=== PATIENT | female | born 1985 | race American Indian/Alaskan Native ===

== ENCOUNTER 2017-05-09 14:37 | Emergency (ER) | payer SELFPAY ==
[2017-05-09 16:51] LABS: Urine Drugs of Abuse Note Disclamer
[2017-05-09 17:10] LABS: Bacteria,Urine 1+ /HPF (Negative); Bilirubin,Urine NEG (Negative); Blood,Urine NEG (Negative); Ketones,Urine 80 mg/dL (Negative); Leukocyte Esterase,Urine NEG (Negative); Mucus,Urine 1+ /HPF; Nitrite,Urine NEG (Negative)
[2017-05-09 17:16] LABS: Basophils % (Auto) 0.9 % (0.0-1.8); Eosinophils % (Auto) 1.7 % (0.0-4.3); Hematocrit 32.1 % (30.3-42.9); Hemoglobin 10.5 gm/dl (10.1-14.3); Mean Corpuscular HGB Conc 33 % (30-34); Mean Corpuscular Hemoglobin 27 pg (28-32); Mean Corpuscular Volume 81 fl (79-97); Platelet Count 245 K/mm3 (140-440); Red Blood Count 3.96 M/mm3 (3.65-5.03); White Blood Count 5.9 K/mm3 (4.5-11.0)
[2017-05-09 17:26] LABS: Red Cell Distribution Width 21.3 % (13.2-15.2)
[2017-05-09 17:27] LABS: Anion Gap 16 mmol/L; Blood Urea Nitrogen 10 mg/dL (7-17); Calcium 9.2 mg/dL (8.4-10.2); Carbon Dioxide 24 mmol/L (22-30); Chloride 99.9 mmol/L (98-107); Glucose 81 mg/dL (65-100); Potassium 3.3 mmol/L (3.6-5.0); Sodium 137 mmol/L (137-145)
[2017-05-09 17:29] LABS: Albumin 4.1 g/dL (3.9-5); Albumin/Globulin Ratio 1.2 %; Bilirubin,Direct 0.2 mg/dL (0-0.2); Bilirubin,Indirect 0.4 mg/dL; Bilirubin,Total 0.6 mg/dL (0.1-1.2); Total Protein 7.6 g/dL (6.3-8.2)
[2017-05-09] MEDS ORDERED: NACL 0.9% 1000 ML 1,000 ML IV ONE ×2 (17:37→17:41)
--- NOTE | 2017-05-09 17:37 | Emergency Department Report ---
ED Altered Mental Status HPI - General Chief Complaint: Psych Stated Complaint: AMS Time Seen by Provider: 05/09/17 16:42 Source: police, EMS Mode of arrival: Stretcher Limitations: Altered Mental Status - History of Present Illness MD Complaint: altered mental status, other (pt responding on exam to light tactile stimulation. she moans and moves head. abc intact. will not follow command. no trauma. was seen at [facility] by pd. ) -: unknown Context: alcohol abuse, drug abuse, other (no previous admit to [facility]) - Related Data Home Medications Medication Instructions Recorded Confirmed Last Taken No Known Home Medications [No 05/09/17 05/09/17 Unknown Reported Home Medications] Allergies Allergy/AdvReac Type Severity Reaction Status Date / Time No Known Allergies Allergy Verified 05/09/17 16:34 ED Review of Systems ROS: Stated complaint: AMS Other details as noted in HPI Comment: Unobtainable due to pts medical conditions Constitutional: no symptoms reported Eyes: as per HPI ENT: as per HPI Respiratory: no symptoms reported Cardiovascular: as per HPI Endocrine: no symptoms reported Gastrointestinal: as per HPI Genitourinary: as per HPI Musculoskeletal: as per HPI Skin: as per HPI Neurological: as per HPI Psychiatric: as per HPI, depression (reoports being on zoloft). denies: anxiety Hematological/Lymphatic: as per HPI ED Past Medical Hx - Past Medical History Previous Medical History?: No - Surgical History Past Surgical History?: No - Family History Family history: other (denies) - Social History Smoking Status: Unknown if ever smoked Substance Use Type: Cocaine, Marijuana, Other Other Social History: unknown - Medications Home Medications: Home Medications Medication Instructions Recorded Confirmed Last Taken Type No Known Home Medications [No 05/09/17 05/09/17 Unknown History Reported Home Medications] ED Physical Exam - General Limitations: Altered Mental Status General appearance: in no apparent distress, appears intoxicated - Head Head exam: Present: atraumatic - Eye Eye exam: Present: PERRL, other (2r b) - ENT ENT exam: Present: normal exam, normal orophraynx - Neck Neck exam: Present: normal inspection - Respiratory Respiratory exam: Present: normal lung sounds bilaterally - Cardiovascular Cardiovascular Exam: Present: regular rate - GI/Abdominal GI/Abdominal exam: Present: soft - Rectal Rectal exam: Present: deferred - Extremities Exam Extremities exam: Present: normal inspection - Back Exam Back exam: Present: normal inspection - Expanded Neurological Exam Expanded Patient oriented to: Present: person, place Speech: Present: fluid speech. Absent: receptive aphasia, expressive aphasia Cranial nerves: EOM's Intact: Normal, Gag Reflex: Normal, Tongue Deviation: Normal, Nystagmus: Normal, Facial Sensation: Normal Motor strength exam: RUE: 5, LUE: 5, RLE: 5, LLE: 5 Best Eye Response (Heidi): (4) open spontaneously (1224) Best Motor Response ([place]): (6) obeys commands Best Verbal Response (Heidi): (5) oriented (constricted) Heidi Total: 15 - Psychiatric Psychiatric exam: Present: agitated (when pressed for information becomes agiated. ). Absent: normal affect, normal mood, depressed - Skin Skin exam: Present: warm, dry, intact, normal color ED Course Vital Signs 05/09/17 05/09/17 05/09/17 16:34 17:26 21:43 Temperature 97.7 F Pulse Rate 74 97 H Respiratory 16 16 Rate Blood Pressure 125/72 101/64 108/56 [Left] O2 Sat by Pulse 96 97 Oximetry - Reevaluation(s) Reevaluation #1: 05/09/17 abc intact vss pd saw pt at gas station to er no trauma or indication of trauma polysub noted no hx available 1013 for psych consult replace k fluids recheck k check mg allow to wake up- ongoing monitoring and med clearance Reevaluation #2: 05/09/17 18:25 was asking for food when labs drawn vss abc intact arouses to tactile stimuli and tells me her name vilma moving in the stretcher from side to side at this time. 05/09/17 18:26 plan allow to sober replace k psych consult reassess as she awakens- notify nok Reevaluation #3: 05/09/17 19:10 responding to light stimulation taking po juice wo difficulty ck noted ivf infusion repeat labs in am for med clearance. Reevaluation #4: 05/09/17 20:44 vss nad abc intact answering basic questions not forthcoming of where she lives or w who taking po juice ivf infusing. Reevaluation #5: 05/09/17 23:45 alert and oriented to ER and who she is states lives on streets zoloft daily per pt denies snorting or injecting meds states she does not know what she took x xanax plan monitor labs checked in am p mental health eval - Lab Data Result diagrams: 05/09/17 16:49 05/09/17 16:49 Lab Results 05/09/17 05/09/17 05/09/17 Range/Units 16:32 16:32 16:49 WBC (4.5-11.0) K/mm3 RBC (3.65-5.03) M/mm3 Hgb (10.1-14.3) gm/dl Hct (30.3-42.9) % MCV (79-97) fl MCH (28-32) pg MCHC (30-34) % RDW (13.2-15.2) % Plt Count (140-440) K/mm3 Lymph % (Auto) (13.4-35.0) % [place] % (Auto) (0.0-7.3) % Eos % (Auto) (0.0-4.3) % Baso % (Auto) (0.0-1.8) % Lymph # (1.2-5.4) K/mm3 [place] # (0.0-0.8) K/mm3 Eos # (0.0-0.4) K/mm3 Baso # (0.0-0.1) K/mm3 Seg Neutrophils % (40.0-70.0) % Seg Neutrophils # (1.8-7.7) K/mm3 Sodium 137 (137-145) mmol/L Potassium 3.3 L (3.6-5.0) mmol/L Chloride 99.9 (98-107) mmol/L Carbon Dioxide 24 (22-30) mmol/L Anion Gap 16 mmol/L BUN 10 (7-17) mg/dL Creatinine 0.8 (0.7-1.2) mg/dL Estimated GFR > 60 ml/min BUN/Creatinine Ratio 12.50 % Glucose 81 (65-100) mg/dL POC Glucose (70-105) Calcium 9.2 (8.4-10.2) mg/dL Magnesium (1.7-2.3) mg/dL Total Bilirubin (0.1-1.2) mg/dL Direct Bilirubin (0-0.2) mg/dL Indirect Bilirubin mg/dL AST (5-40) units/L ALT (7-56) units/L Alkaline Phosphatase (35-129) units/L Total Creatine Kinase (30-135) units/L Total Protein (6.3-8.2) g/dL Albumin (3.9-5) g/dL Albumin/Globulin Ratio % Urine Color Yellow (Yellow) Urine Turbidity Clear (Clear) Urine pH 5.0 (5.0-7.0) Ur Specific Holcomb 1.030 (1.003-1.030) Urine Protein 30 mg/dl (Negative) mg/dL Urine Glucose (UA) Neg (Negative) mg/dL Urine Ketones 80 (Negative) mg/dL Urine Blood Neg (Negative) Urine Nitrite Neg (Negative) Urine Bilirubin Neg (Negative) Urine Urobilinogen 4.0 (<2.0) mg/dL Ur Leukocyte Esterase Neg (Negative) Urine WBC (Auto) 2.0 (0.0-6.0) /HPF Urine RBC (Auto) 6.0 (0.0-6.0) /HPF U Epithel Cells (Auto) 3.0 (0-13.0) /HPF Urine Bacteria (Auto) 1+ (Negative) /HPF Urine Mucus 1+ /HPF Urine HCG, Qual Negative (Negative) Urine Opiates Screen Presumptive negative Urine Methadone Screen Presumptive negative Ur Barbiturates Screen Presumptive positive Ur Phencyclidine Scrn Presumptive negative Ur Amphetamines Screen Presumptive negative U Benzodiazepines Scrn Presumptive positive Urine Cocaine Screen Presumptive positive U Marijuana (THC) Screen Presumptive positive Drugs of Abuse Note Disclamer Plasma/Serum Alcohol (0-0.07) gm% 05/09/17 05/09/17 05/09/17 Range/Units 16:49 16:49 16:49 WBC 5.9 (4.5-11.0) K/mm3 RBC 3.96 (3.65-5.03) M/mm3 Hgb 10.5 (10.1-14.3) gm/dl Hct 32.1 (30.3-42.9) % MCV 81 (79-97) fl MCH 27 L (28-32) pg MCHC 33 (30-34) % RDW 21.3 H (13.2-15.2) % Plt Count 245 (140-440) K/mm3 Lymph % (Auto) 24.7 (13.4-35.0) % [place] % (Auto) 12.5 H (0.0-7.3) % Eos % (Auto) 1.7 (0.0-4.3) % Baso % (Auto) 0.9 (0.0-1.8) % Lymph # 1.4 (1.2-5.4) K/mm3 [place] # 0.7 (0.0-0.8) K/mm3 Eos # 0.1 (0.0-0.4) K/mm3 Baso # 0.1 (0.0-0.1) K/mm3 Seg Neutrophils % 60.2 (40.0-70.0) % Seg Neutrophils # 3.5 (1.8-7.7) K/mm3 Sodium (137-145) mmol/L Potassium (3.6-5.0) mmol/L Chloride (98-107) mmol/L Carbon Dioxide (22-30) mmol/L Anion Gap mmol/L BUN (7-17) mg/dL Creatinine (0.7-1.2) mg/dL Estimated GFR ml/min BUN/Creatinine Ratio % Glucose (65-100) mg/dL POC Glucose (70-105) Calcium (8.4-10.2) mg/dL Magnesium (1.7-2.3) mg/dL Total Bilirubin 0.60 (0.1-1.2) mg/dL Direct Bilirubin 0.2 (0-0.2) mg/dL Indirect Bilirubin 0.4 mg/dL AST 47 H (5-40) units/L ALT 40 (7-56) units/L Alkaline Phosphatase 72 (35-129) units/L Total Creatine Kinase (30-135) units/L Total Protein 7.6 (6.3-8.2) g/dL Albumin 4.1 (3.9-5) g/dL Albumin/Globulin Ratio 1.2 % Urine Color (Yellow) Urine Turbidity (Clear) Urine pH (5.0-7.0) Ur Specific Holcomb (1.003-1.030) Urine Protein (Negative) mg/dL Urine Glucose (UA) (Negative) mg/dL Urine Ketones (Negative) mg/dL Urine Blood (Negative) Urine Nitrite (Negative) Urine Bilirubin (Negative) Urine Urobilinogen (<2.0) mg/dL Ur Leukocyte Esterase (Negative) Urine WBC (Auto) (0.0-6.0) /HPF Urine RBC (Auto) (0.0-6.0) /HPF U Epithel Cells (Auto) (0-13.0) /HPF Urine Bacteria (Auto) (Negative) /HPF Urine Mucus /HPF Urine HCG, Qual (Negative) Urine Opiates Screen Urine Methadone Screen Ur Barbiturates Screen Ur Phencyclidine Scrn Ur Amphetamines Screen U Benzodiazepines Scrn Urine Cocaine Screen U Marijuana (THC) Screen Drugs of Abuse Note Plasma/Serum Alcohol < 0.01 (0-0.07) gm% 05/09/17 05/09/17 05/09/17 Range/Units 17:23 17:39 17:53 WBC (4.5-11.0) K/mm3 RBC (3.65-5.03) M/mm3 Hgb (10.1-14.3) gm/dl Hct (30.3-42.9) % MCV (79-97) fl MCH (28-32) pg MCHC (30-34) % RDW (13.2-15.2) % Plt Count (140-440) K/mm3 Lymph % (Auto) (13.4-35.0) % [place] % (Auto) (0.0-7.3) % Eos % (Auto) (0.0-4.3) % Baso % (Auto) (0.0-1.8) % Lymph # (1.2-5.4) K/mm3 [place] # (0.0-0.8) K/mm3 Eos # (0.0-0.4) K/mm3 Baso # (0.0-0.1) K/mm3 Seg Neutrophils % (40.0-70.0) % Seg Neutrophils # (1.8-7.7) K/mm3 Sodium (137-145) mmol/L Potassium (3.6-5.0) mmol/L Chloride (98-107) mmol/L Carbon Dioxide (22-30) mmol/L Anion Gap mmol/L BUN (7-17) mg/dL Creatinine (0.7-1.2) mg/dL Estimated GFR ml/min BUN/Creatinine Ratio % Glucose (65-100) mg/dL POC Glucose 105 (70-105) Calcium (8.4-10.2) mg/dL Magnesium 2.10 (1.7-2.3) mg/dL Total Bilirubin (0.1-1.2) mg/dL Direct Bilirubin (0-0.2) mg/dL Indirect Bilirubin mg/dL AST (5-40) units/L ALT (7-56) units/L Alkaline Phosphatase (35-129) units/L Total Creatine Kinase 159 H (30-135) units/L Total Protein (6.3-8.2) g/dL Albumin (3.9-5) g/dL Albumin/Globulin Ratio % Urine Color (Yellow) Urine Turbidity (Clear) Urine pH (5.0-7.0) Ur Specific [place] (1.003-1.030) Urine Protein (Negative) mg/dL Urine Glucose (UA) (Negative) mg/dL Urine Ketones (Negative) mg/dL Urine Blood (Negative) Urine Nitrite (Negative) Urine Bilirubin (Negative) Urine Urobilinogen (<2.0) mg/dL Ur Leukocyte Esterase (Negative) Urine WBC (Auto) (0.0-6.0) /HPF Urine RBC (Auto) (0.0-6.0) /HPF U Epithel Cells (Auto) (0-13.0) /HPF Urine Bacteria (Auto) (Negative) /HPF Urine Mucus /HPF Urine HCG, Qual (Negative) Urine Opiates Screen Urine Methadone Screen Ur Barbiturates Screen Ur Phencyclidine Scrn Ur Amphetamines Screen U Benzodiazepines Scrn Urine Cocaine Screen U Marijuana (THC) Screen Drugs of Abuse Note Plasma/Serum Alcohol (0-0.07) gm% - EKG Data -: EKG Interpreted by Me EKG shows normal: sinus rhythm Rate: normal Interpretation: no acute changes - Medical Decision Making polysub abuse Critical care attestation.: If time is entered above; I have spent that time in minutes in the direct care of this critically ill patient, excluding procedure time. ED Disposition Clinical Impression: Polysubstance abuse, Altered mental state, Hypokalemia, Depression Disposition: DC/TX-65 PSY HOSP/PSY UNIT Is pt being admited?: No Does the pt Need Aspirin: No Condition: Stable
[2017-05-09] MEDS ORDERED: KCL 10MEQ/100ML 10 MEQ/100 ML BAG IV ONE (17:39)
--- NOTE | 2017-05-10 11:41 | Consultation ---
History of Present Illness - Reason for Consult Consult date: 05/10/17 Reason for consult: AMS and polysubstance abuse Medications and Allergies Allergies Allergy/AdvReac Type Severity Reaction Status Date / Time No Known Allergies Allergy Verified 05/09/17 16:34 Home Medications Medication Instructions Recorded Confirmed Last Taken Type No Known Home Medications [No 05/09/17 05/09/17 Unknown History Reported Home Medications] Mental Status Exam - Vital signs Last Vital Signs Temp 98.7 F 05/10/17 08:42 Pulse 94 H 05/10/17 08:42 Resp 16 05/10/17 08:43 BP 126/80 05/10/17 08:42 Pulse Ox 99 05/10/17 08:43 Results Result Diagrams: 05/09/17 16:49 05/09/17 16:49 Abnormal lab results 05/09/17 05/09/17 05/09/17 Range/Units 16:49 16:49 16:49 MCH 27 L (28-32) pg RDW 21.3 H (13.2-15.2) % [place] % (Auto) 12.5 H (0.0-7.3) % Potassium 3.3 L (3.6-5.0) mmol/L AST 47 H (5-40) units/L Total Creatine Kinase (30-135) units/L Salicylates (2.8-20.0) mg/dL 05/09/17 05/10/17 Range/Units 17:53 02:20 MCH (28-32) pg RDW (13.2-15.2) % [place] % (Auto) (0.0-7.3) % Potassium (3.6-5.0) mmol/L AST (5-40) units/L Total Creatine Kinase 159 H (30-135) units/L Salicylates < 0.3 L (2.8-20.0) mg/dL All other labs normal. Assessment and Plan Assessment and plan: CHIEF COMPLAINT IN PATIENTS WORDS: HISTORY OF PRESENT ILLNESS REQUIRING ADMISSION TO INPATIENT LEVEL OF CARE: (Describe the onset of Illness, Intensity of Symptoms, and Circumstances Leading to Admission) This is a 32 year-old undomiciled female who presents to the ED after being found sleeping on the ground for several days [place] a [place] station. Per review of medical records, patient has been abusing several substances including cocaine, marijuana and benzodiazepines. It is unclear if the patient had overdosed on any of these substances and consequently found herself unresponsive. Over the past 24 hours clinical examination suggests the patient has been mostly nonresponsive. She's had some IV hydration in the ER. On my clinical examination today, patient remains asleep and minimally responsive. I was unable to obtain further clinical information due to her not being responsive. PSYCHIATRIC REVIEW OF SYSTEMS: Substance: Appears to be abusing cocaine, THC and benzodiazepines frequency and use unknown Depression: Unable to obtain Sam[place]: Unable to obtain Psychosis: Unable to obtain Anxiety/ OCD/ PTSD: Unable to obtain Suicidality: Unable to obtain Other Self-Injurious Behavior: Unable to obtain Violent/ Aggressive Behavior: Unable to obtain CURRENT MEDICATIONS: ( Psychiatric and Non-psychiatric ) None ALLERGIES: NKDA PAST PSYCHIATRIC HISTORY: ( Prior Treatment, Precipitating Factors, Diagnosis, and Course of Treatment ) Unable to obtain PAST PSYCHIATRIC MEDICATION TRIALS: Unable to obtain MEDICAL HISTORY: (Chronic and Acute Illnesses, Current Medical Treatment, Recent Hospitalizations) Unable to obtain HISTORY OF TRAUMA/ABUSE: Unable to obtain DRUG / ALCOHOL ABUSE HISTORY: as above Detoxification / Withdrawal: sedated, vitals stable SOCIAL HISTORY: (Educational Level, Employment, Support System, Interpersonal Relationships) homeless FAMILY HISTORY: Psychiatric/Substance Abuse MENTAL STATUS EXAM: General Appearance: Sedated and in hospital gown Sensorium/Consciousness: Arousable to noxious stimuli Eye Contact: Asleep Attitude / Behavior: Asleep, uncooperative Psychomotor & Musculoskeletal Activity: Asleep Mood: Unable to obtain Affect: Unable to obtain Speech / Language: Unable to obtain Thought Processes: Unable to obtain Thought Content: Unable to obtain Perception: Unable to obtain Orientation: Unable to obtain Judgment What would you do if you smelled smoke in a crowded movie theater?: poor/impulsive Insight: poor Intelligence Vocabulary, general fund of knowledge, educational level :Unable to obtain Capacity of ADLs: Unable to assess STRENGTHS: PSYCHOSOCIAL AND ENVIRONMENTAL STRESSORS: Chronic substance abuse and homelessness ADMITTING DIAGNOSES Psychiatric Acute intoxication with cocaine, THC and benzodiazepines Evidence for the following: Rule out cocaine abuse, cannabis abuse, benzodiazepine abuse Rule out major depression Rule out bipolar disorder Medical: n/a INITIAL PLAN OF CARE AND TREATMENT GOALS: Supportive care Continue to monitor for signs and symptoms of withdrawal, place on CIWA Reassess once patient is more alert and awake
[2017-05-10] MEDS ORDERED: ATIVAN PO PRN ×2 (11:47)
[2017-05-11 09:52] VITALS: BP 93/61
--- NOTE | 2017-05-11 13:23 | Emergency Department Report ---
Blank Doc - Documentation Documentation: Patient has been reevaluated by psychiatry. Form 1013 has been rescinded. Recommendations have been made for outpatient follow-up. Patient continues to have intermittent verbal outbursts, but is not hallucinating. There is no evidence of suicidal or homicidal ideations. Patient will be discharged at this time.
--- NOTE | 2017-05-11 13:44 | Progress Note ---
Subjective - Reason for Consult Reason for consult: evaluate to rescind 1013 Mental Status Exam - Vital signs Last Vital Signs Temp 98.1 F 05/11/17 09:22 Pulse 70 05/11/17 09:35 Resp 16 05/11/17 09:35 BP 93/61 05/11/17 09:35 Pulse Ox 100 05/11/17 09:35 Assessment and Plan Examination today, patient was much more lucid and alert. Patient is no longer acutely intoxicated on alcohol and other substances. Patient did note that she was having substances and was sedated. Consequently she was found by EMS or [employer]D and brought to the hospital. Patient is currently residing in a motel for the past 2 weeks. She is stable resident in [place] and has recently to [place] to find other opportunities of employment. At the current moment, patient does have impulsive behaviors in the form of seeking substances to help her improve her mood. Self-reported mood is euthymic and stable at the current moment; however, she does experience periodic low sad moods. At the current time she notes that she is not experiencing such low moods to the extent that which she would like to end her life. She does have social stressors in the form of unemployment and family conflict, which she has attempted to escape by moving to [place] onset of residing in her small town in [place]. Given the above information, it is my opinion that the patient is at low risk for suicide , but remains a high risk for abusing substances. Patient has been advised to seek substance abuse counseling and abstain from illicit substances as well as alcohol. At the current time, patient is not willing to engage in such programs due to her desire to continue using alcohol and likely other illicit substances. At the current time, there is no recourse to force the patient to abstain from substances and she is free to engage in persistent substance abuse. General Appearance: casually dressed, no acute distress Sensorium/Consciousness: alert and responding to external stimuli; clear Orientation: person, place, time and situation Eye Contact: limited Attitude / Behavior: guarded Psychomotor & Musculoskeletal Activity: WNL Mood: ok Affect: constricted, limited range Speech / Language: fluent, with normal rate/rhythm/tone Thought Processes: organized, logical, linear Thought Content: no SI, no HI Perception: no AVH Insight: limited Judgement: limitied Capacity for ADLs: independent INITIAL PLAN OF CARE AND TREATMENT GOALS: Rescind 1013 the patient is not in acute and imminent risk of harm to self or another. Furthermore, patient is able to take care of her ADLs and her basic needs. Given the above to, she does not meet criteria for involuntary psychiatric hospitalization. Patient has been advised to engage in substance abuse rehabilitation Outpatient mental health resources will be provided to the patient upon discharge
== END 2017-05-11 13:35 | disposition home or self-care (01) ==
LOC: EEVIPCON 14:37 → ED 14:37
DX: R41.82 Altered mental status, unspecified (principal); F19.10 Other psychoactive substance abuse, uncomplicated; E87.6 Hypokalemia; F32.9 Major depressive disorder, single episode, unspecified; F12.10 Cannabis abuse, uncomplicated; F14.10 Cocaine abuse, uncomplicated
CPT/HCPCS: 36415; 80048; 80074; 80307; 81001; 81025; 82550; 82962; 83735; 85025; 93005; 93010; 96361; 96365; 99284; G0480; J3480; J7030; 80320